=== PATIENT | female | born 1945 | race Caucasian/White ===

== ENCOUNTER → 2022-08-18 | Outpatient (CLI) | payer MEDICARE | LOC: WOUNDCARE 13:21 | PROVIDERS: ATTEND Family Medicine | DX: L97.212 Non-pressure chronic ulcer of right calf with fat layer exposed (principal); L97.222 Non-pressure chronic ulcer of left calf with fat layer exposed; L03.115 Cellulitis of right lower limb; I89.0 Lymphedema, not elsewhere classified; M62.81 Muscle weakness (generalized); E66.01 Morbid (severe) obesity due to excess calories | CPT/HCPCS: 11042; 11045; 87070; 87077; 87186; 87205; A6197; G0463 ==

== ENCOUNTER → 2022-08-25 | Outpatient (CLI) | payer MEDICARE ==
--- NOTE | 2022-08-25 13:48 | Diagnostic Imaging Report ---
PROCEDURE: US Bilateral lower extremity arterial. TECHNIQUE: Multiple real-time grayscale images are obtained through both lower extremity arterial systems with color Doppler imaging and color Doppler spectral analysis. INDICATION: Chronic pressure ulcer. COMPARISON: None available. FINDINGS: Color Doppler imaging shows patency of the common femoral, superficial femoral, popliteal, posterior tibial, and dorsalis pedis arteries on both sides. Multifocal atherosclerotic plaquing is present. There is a mixture of triphasic and biphasic waveforms in the bilateral lower extremities. No elevated peak systolic velocities that would indicate hemodynamically significant stenosis. Multifocal atherosclerotic plaquing. IMPRESSION: No arterial stenosis or occlusion in the bilateral lower extremities. Dictated by: Dictated on workstation # [id number]
== END ==
LOC: RAD 08:56
PROVIDERS: ATTEND Family Medicine
DX: L97.212 Non-pressure chronic ulcer of right calf with fat layer exposed (principal); L97.222 Non-pressure chronic ulcer of left calf with fat layer exposed; L03.115 Cellulitis of right lower limb; L03.116 Cellulitis of left lower limb; I89.0 Lymphedema, not elsewhere classified; M62.81 Muscle weakness (generalized); E66.01 Morbid (severe) obesity due to excess calories
CPT/HCPCS: 93925

== ENCOUNTER → 2022-08-25 | Outpatient (CLI) | payer MEDICARE | LOC: WOUNDCARE 10:05 | PROVIDERS: ATTEND Family Medicine | DX: I96 Gangrene, not elsewhere classified (principal); L97.212 Non-pressure chronic ulcer of right calf with fat layer exposed; L97.222 Non-pressure chronic ulcer of left calf with fat layer exposed; L03.116 Cellulitis of left lower limb; L03.115 Cellulitis of right lower limb; I89.0 Lymphedema, not elsewhere classified; M62.81 Muscle weakness (generalized); E66.01 Morbid (severe) obesity due to excess calories; B96.5 Pseudomonas (aeruginosa) (mallei) (pseudomallei) as the cause of diseases classified elsewhere; B95.2 Enterococcus as the cause of diseases classified elsewhere; Z68.38 Body mass index [BMI] 38.0-38.9, adult | CPT/HCPCS: 11042; 11045; G0463 ==

== ENCOUNTER → 2022-09-01 | Outpatient (CLI) | payer MEDICARE | LOC: WOUNDCARE 12:59 | PROVIDERS: ATTEND Family Medicine | DX: I96 Gangrene, not elsewhere classified (principal); L97.212 Non-pressure chronic ulcer of right calf with fat layer exposed; L03.115 Cellulitis of right lower limb; I89.0 Lymphedema, not elsewhere classified; M62.81 Muscle weakness (generalized); E66.01 Morbid (severe) obesity due to excess calories; B96.5 Pseudomonas (aeruginosa) (mallei) (pseudomallei) as the cause of diseases classified elsewhere; B95.2 Enterococcus as the cause of diseases classified elsewhere; Z68.38 Body mass index [BMI] 38.0-38.9, adult | CPT/HCPCS: 11042; 11045; G0463 ==

== ENCOUNTER → 2022-09-08 | Outpatient (CLI) | payer MEDICARE | LOC: WOUNDCARE 13:51 | PROVIDERS: ATTEND Family Medicine | DX: L97.212 Non-pressure chronic ulcer of right calf with fat layer exposed (principal); I89.0 Lymphedema, not elsewhere classified; R53.1 Weakness; E66.01 Morbid (severe) obesity due to excess calories; I96 Gangrene, not elsewhere classified | CPT/HCPCS: 11042; 11045; G0463 ==

== ENCOUNTER → 2022-09-29 | Outpatient (CLI) | payer MEDICARE | LOC: WOUNDCARE 13:51 | PROVIDERS: ATTEND Family Medicine | DX: L97.212 Non-pressure chronic ulcer of right calf with fat layer exposed (principal); I89.0 Lymphedema, not elsewhere classified; M62.81 Muscle weakness (generalized); E66.01 Morbid (severe) obesity due to excess calories | CPT/HCPCS: 99212 ==